=== PATIENT | female | born 1955 | race Caucasian/White ===

== ENCOUNTER 2023-12-26 09:25 | Day surgery (SDC) | payer OTHER ==
[2023-12-25 11:58] LABS: BASOPHILS % (AUTO) 0.4 % (0-1); EOSINOPHILS % (AUTO) 0.7 % (0-6); HEMATOCRIT 37.4 % (35.0-45.0); HEMOGLOBIN 12.3 g/dl (12.0-16.0); LYMPHOCYTES # (AUTO) 1.9 X10'3 (1.1-4.8); LYMPHOCYTES % (AUTO) 32.7 % (21-51); MEAN CORPUSCULAR HEMOGLOBIN 32.7 PG (27.0-31.0); MEAN CORPUSCULAR VOLUME 99.3 FL (78-98); MONOCYTES # (AUTO) 0.6 X10'3 (0-0.9); MONOCYTES % (AUTO) 10.7 % (2-12); NEUTROPHILS # (AUTO) 3.3 X10'3 (1.8-7.7); NEUTROPHILS % (AUTO) 55.5 % (42-75); PLATELET COUNT 271 X10'3 (140-440); RED BLOOD COUNT 3.76 X10'6 (4.20-5.60); RED CELL DISTRIBUTION WIDTH 14.5 % (11.5-14.5); WHITE BLOOD COUNT 5.9 X10'3 (4.5-11.0)
[2023-12-25 12:12] LABS: ALBUMIN 3.5 G/DL (3.4-5.0); ANION GAP 11 (8-16); BLOOD UREA NITROGEN 11 MG/DL (7-18); BUN/CREATININE RATIO 15.9 (10.0-20.0); CALCIUM 9.4 MG/DL (8.5-10.1); CHLORIDE 101 MMOL/L (99-107); CHOL/HDL RATIO 3.1 (0.00-4.99); CHOLESTEROL 132 MG/DL (0-200); CREATININE 0.69 MG/DL (0.40-0.90); GLUCOSE 185 MG/DL (70-104); HDL CHOLESTEROL 42 MG/DL (35-60); LDL CHOLESTEROL 70 MG/DL (50-100); SODIUM 138 MMOL/L (135-145); TOTAL CARBON DIOXIDE 26.3 MMOL/L (24-32); TRIGLYCERIDES 136 MG/DL (20-135); eGFR 84 ML/MIN
[2023-12-25 12:27] LABS: APTT 28 SECONDS (22-32); INR 1.1 INR
[~2023-12-26] VITALS: Ht 165.1 cm; Wt 129.2 kg
[2023-12-26] VITALS (11 sets, daily range): BP systolic 100–162; BP diastolic 58–83; PULSE 78–85; RESP 16–23; TEMP 98; O2SAT 94–99
[2023-12-26] MEDS ORDERED: LORazepam 0.5 MG tablet PO PRN (09:45)
[2023-12-26] MEDS ORDERED: diphenhydrAMINE 25mg capsule PO PRN (09:45)
[2023-12-26] MEDS ORDERED: LOSA1TAB41 PO (09:52)
[2023-12-26] MEDS ORDERED: ASPI-611 PO (09:52)
[2023-12-26] MEDS ORDERED: INSU200I4 SQ (09:52)
[2023-12-26] MEDS ORDERED: ATOR40TA72 PO (09:52)
[2023-12-26] MEDS ORDERED: SPIR25TA5 PO (09:52)
[2023-12-26] MEDS ORDERED: GABA-530 PO (09:52)
[2023-12-26] MEDS ORDERED: FURO40TA4 PO (09:52)
[2023-12-26] MEDS ORDERED: KEN0.1O TOP (09:52)
[2023-12-26] MEDS ORDERED: METF-438 PO (09:52)
[2023-12-26] MEDS ORDERED: PIOG45TA65 PO (09:52)
[2023-12-26] MEDS ORDERED: HYDR-3972 PO (09:52)
[2023-12-26] MEDS ORDERED: fentaNYL/PF 50MCG/1 ML 2ML syringe ONE (11:57)
[2023-12-26] MEDS ORDERED: LIDOcaine 1% (10mg/ml) 2ml vial ONE (11:57)
[2023-12-26] MEDS ORDERED: verapamil 2.5 mg/ml inj IV ONE (11:57)
[2023-12-26] MEDS ORDERED: midazolam 1 mg/ML 2ml injection ONE ×3 (11:57→12:51)
[2023-12-26] MEDS ORDERED: iohexol 350MG/ML 100ml bottle IV ONE (11:58)
[2023-12-26] MEDS ORDERED: heparin 1,000unit/ml 10ml vial 10 ML ONE (11:58)
[2023-12-26] MEDS ORDERED: nitroGLYCERIN 500mcg/5mL D5W 5 ML IV ONE (12:00)
[2023-12-26] MEDS ORDERED: HYDROcodone/acetaminophen 5mg/325mg tablet PO PRN (13:40)
[2023-12-26 14:19] LABS: ISTAT HGB MIX 11.6 g/dl (12.0-16.0); ISTAT Hct MIX 34 %PCV (35-45); ISTAT O2 SATURATION MIX VENOUS 63 % (60-80); ISTAT SOURCE BLNK
[2023-12-26] MEDS: HYDROcodone/acetaminophen 10/325mg tab PO PRN (15:14)
[2023-12-26] MEDS: normal saline 1,000 ML IV SCH (15:14)
[2024-01-01 10:04] LABS: ISTAT HGB MIX 11.2 g/dl (12.0-16.0); ISTAT Hct MIX 33 %PCV (35-45); ISTAT O2 SATURATION MIX VENOUS 94 % (60-80); ISTAT SOURCE BLNK
== END 2023-12-26 16:20 | disposition home or self-care (01) ==
LOC: SSTAY O 09:25
PROVIDERS: ATTEND Internal Medicine Interventional Cardiology
DX: I35.0 Nonrheumatic aortic (valve) stenosis (principal); I11.0 Hypertensive heart disease with heart failure; I50.9 Heart failure, unspecified; E11.9 Type 2 diabetes mellitus without complications; E78.00 Pure hypercholesterolemia, unspecified; E66.9 Obesity, unspecified; Z68.42 Body mass index [BMI] 45.0-49.9, adult
CPT/HCPCS: 36415; 80048; 80061; 82803; 82948; 85014; 85025; 85610; 85730; 93005; 93456; 99152; A6258; J1644; J2250; J3490; J7030; Q9967; A6449; C1751; C1769; C1894; J3010

== ENCOUNTER 2024-02-07 10:45 | Outpatient (CLI) | payer OTHER ==
[~2024-02-07 10:45] MED LIST: ASPI-611 PO; ATOR40TA72 PO; FURO40TA4 PO; GABA-530 PO; HYDR-3972 PO; INSU200I4 SQ; IODIXANOL 320 MG/ML INFUS..BTL 100ML IV ONE; KEN0.1O TOP; LOSA1TAB41 PO; METF-438 PO; PIOG45TA65 PO; SPIR25TA5 PO
[2024-02-07 11:24] LABS: BASOPHILS % (AUTO) 0.3 % (0-1); EOSINOPHILS # (AUTO) 0.1 X10'3 (0-0.9); EOSINOPHILS % (AUTO) 0.6 % (0-6); HEMATOCRIT 33.3 % (35.0-45.0); LYMPHOCYTES # (AUTO) 1.7 X10'3 (1.1-4.8); LYMPHOCYTES % (AUTO) 20.3 % (21-51); MEAN CORPUSCULAR HEMOGLOBIN 33.1 PG (27.0-31.0); MEAN CORPUSCULAR VOLUME 100.5 FL (78-98); MEAN PLATELET VOLUME 7.8 FL (7.4-10.4); MONOCYTES # (AUTO) 0.7 X10'3 (0-0.9); MONOCYTES % (AUTO) 8.6 % (2-12); NEUTROPHILS # (AUTO) 5.9 X10'3 (1.8-7.7); NEUTROPHILS % (AUTO) 70.2 % (42-75); PLATELET COUNT 314 X10'3 (140-440); RED BLOOD COUNT 3.32 X10'6 (4.20-5.60); RED CELL DISTRIBUTION WIDTH 15.7 % (11.5-14.5); WHITE BLOOD COUNT 8.3 X10'3 (4.5-11.0)
[2024-02-07 11:36] LABS: APTT 28 SECONDS (22-32); INR 1.1 INR
[2024-02-07 11:47] LABS: ALANINE AMINOTRANSFERASE 19 U/L (12-78); ALBUMIN 3.4 G/DL (3.4-5.0); ALBUMIN/GLOBULIN RATIO 0.7 (1.1-1.5); ALKALINE PHOSPHATASE 97 IU/L (46-116); ANION GAP 7 (8-16); ASPARTATE AMINO TRANSFERASE 12 U/L (10-37); BILIRUBIN,TOTAL 0.6 MG/DL (0.1-1.0); BLOOD UREA NITROGEN 13 MG/DL (7-18); BUN/CREATININE RATIO 17.6 (10.0-20.0); CALCIUM 9.1 MG/DL (8.5-10.1); CHLORIDE 103 MMOL/L (99-107); CREATININE 0.74 MG/DL (0.40-0.90); GLUCOSE 199 MG/DL (70-104); POTASSIUM 4.2 MMOL/L (3.5-5.1); PRO BRAIN NATRIURETIC PEPTIDE 1024 PG/ML (0-125); SODIUM 139 MMOL/L (135-145); TOTAL CARBON DIOXIDE 29.4 MMOL/L (24-32); TOTAL PROTEIN 8.1 G/DL (6.4-8.2); eGFR 78 ML/MIN
[2024-02-07] MEDS ORDERED: IODIXANOL 320 MG/ML INFUS..BTL 100ML IV ONE (11:50)
[2024-02-07] MEDS ORDERED: atropine 0.1mg/ml 10ml syringe ONE (12:42)
[2024-02-07] MEDS ORDERED: metoprolol tartrate 1mg/ml inj IV ONE (12:42)
== END 2024-02-07 23:59 | disposition home or self-care (01) ==
LOC: RAD 10:45
PROVIDERS: ATTEND Internal Medicine Cardiovascular Disease
DX: I51.7 Cardiomegaly (principal); I35.0 Nonrheumatic aortic (valve) stenosis; R06.02 Shortness of breath; I65.29 Occlusion and stenosis of unspecified carotid artery; E27.8 Other specified disorders of adrenal gland; M47.814 Spondylosis without myelopathy or radiculopathy, thoracic region; I70.0 Atherosclerosis of aorta; Z90.49 Acquired absence of other specified parts of digestive tract; K57.30 Diverticulosis of large intestine without perforation or abscess without bleeding; N32.89 Other specified disorders of bladder; R09.89 Other specified symptoms and signs involving the circulatory and respiratory systems
CPT/HCPCS: 36415; 71046; 71275; 74174; 75572; 80053; 83880; 85025; 85610; 85730; J3490; Q9967; J0461